=== PATIENT | female | born 1955 | race Caucasian/White ===

== ENCOUNTER → 2019-11-23 | Outpatient (CLI) | payer BC ==
[2014-09-11 15:35] VITALS: BP 146/75
[~2019-11-23] MED LIST: ALLO1POW MC; ARIP2TAB3 PO; CLON0.5T PO; DICL1TAB PO; HYDR10TA2 PO; LEVO25TA55 PO; LOSA1TAB25 PO; METH500T7 PO; PARO10TA57 PO
--- NOTE | 2019-11-23 16:22 | KCIC ---
Bilateral lower extremity arterial ultrasound History: Nonpalpable pulses Findings: Multiple grayscale, color, and duplex spectral analysis sonographic images were acquired of the lower extremity arteries bilaterally. There are no previous similar exams. There is diffuse scattered plaque bilaterally. No vessel occlusion is demonstrated. There are biphasic waveforms of the right beyond the proximal superficial femoral artery. On the left, there are mostly triphasic waveforms other than biphasic waveforms of the posterior tibial and dorsalis pedis arteries. There is no increasing velocity in a pattern suggestive of a significant focal stenosis. Velocities in cm/sec: RIGHT Common femoral artery 141 Profunda femoris artery 69 Proximal SFA 114 Mid SFA 104 Distal SFA 80 Popliteal artery 68 Posterior tibial artery 77 Peroneal artery 43 Anterior tibial artery 83 Dorsalis pedis artery 70 LEFT: Common femoral artery 108 Profunda femoris artery 85 Proximal SFA 139 Mid SFA 117 Distal SFA 104 Popliteal artery 71 Posterior tibial artery 83 Peroneal artery 62 Anterior tibial artery 69 Dorsalis pedis artery 62 Impression: 1. No vessel occlusion is demonstrated. There is scattered plaque bilaterally. Electronically signed by: Edin Aguilar MD (11/23/2019 4:19 PM) [id number]
== END | disposition home or self-care (01) ==
LOC: KCIC US 14:22
PROVIDERS: ATTEND Podiatrist
DX: I70.293 Other atherosclerosis of native arteries of extremities, bilateral legs (principal)
CPT/HCPCS: 93925

== ENCOUNTER → 2022-02-05 | Outpatient (CLI) | payer MEDICARE, BC ==
[2014-09-11 15:35] VITALS: BP 146/75
[~2022-02-05] MED LIST changes: +METH-561 PO; -METH500T7 PO
--- NOTE | 2022-02-05 14:17 | KCIC ---
AP and Lateral Views of the Chest 02/05/2022 12:33 PM Indication: Mid chest pain. Cough, weakness Findings: There is elevation of the anterior right hemidiaphragm. Probable underlying atelectasis not ed. No pneumothorax, effusion, or focal infiltrate is seen. Heart size is normal. Degenerative change s of the right shoulder noted. IMPRESSION: 1.Elevation of the right hemidiaphragm with probable underlying atelectasis 2. No other acute cardiopulmonary process is identified Electronically signed by: Sarwat Nolan MD (02/05/2022 2:14 PM) [id number]
== END ==
LOC: KCIC 12:30
PROVIDERS: ATTEND Family Medicine
DX: R07.9 Chest pain, unspecified (principal)
CPT/HCPCS: 71046